=== PATIENT | male | born 1990 | race Caucasian/White ===

== ENCOUNTER → 2018-10-30 15:33 | Outpatient (CLI) | payer OTHER, SELFPAY ==
[2018-10-30 17:30] LABS: Urine Chlamydia NOT DETECTED; Urine N gonorrhoeae NOT DETECTED
[2018-10-30 17:41] LABS: HIV 1 and 2 Antibody NEGATIVE (NEGATIVE); Hep C Virus Ab w/Reflex Quant NEGATIVE s/c (NEGATIVE)
[2018-11-01 14:46] LABS: Hepatitis B Core Antibody Nonreactive (Nonreactive)
[2018-11-01 14:59] LABS: RPR Screen Nonreactive (Nonreactive)
== END ==
PROVIDERS: Visit Provider Physician Assistant
DX: Z11.3 Encounter for screening for infections with a predominantly sexual mode of transmission (principal)
CPT/HCPCS: 36415; 86592; 86703; 86704; 86803; 87491; 87591